=== PATIENT | female | born 1970 | race Caucasian/White ===

== ENCOUNTER 2017-05-23 16:48 | Emergency (ER) | payer OTHER ==
[~2017-05-23] VITALS: Ht 152.4 cm; Wt 88.0 kg
[2017-05-23] MEDS ORDERED: DOXYCYCLINE 10100 M1 PO (17:08)
[2017-05-23] MEDS ORDERED: DEPO-PROVE150 MG/11 IM (17:08)
[2017-05-23] MEDS ORDERED: PREDNISONE 10 M10 MG PO (17:08)
[2017-05-23 17:54] LABS: ABSOLUTE LYMPHOCYTES 1.2 thou/uL (0.8-5.3); ABSOLUTE MONOCYTES 0.4 thou/uL (0.0-1.2); ABSOLUTE NEUTROPHILS 8.4 thou/uL (1.6-8.1); BASOPHILS 0.3 %; HEMATOCRIT 42.6 % (37.0-47.0); HEMOGLOBIN 13.8 gm/dL (12.0-15.0); LYMPHOCYTES 11.8 %; MCH 28.6 pg (26.0-34.0); MCHC 32.5 g/dL (28.0-37.0); MCV 88.1 fL (80.0-100.0); MONOCYTES 3.9 %; MPV 8.9 fl. (7.2-11.1); NUCLEATED RBCS 0 /100WBC; PLATELET COUNT* 242 thou/uL (150-400); RBC 4.83 mil/uL (4.20-5.00); RDW-CV 15.2 % (10.5-14.5); WBC 9.9 thou/uL (4.0-11.0)
[2017-05-23] MEDS ORDERED: VERAPAMIL ER180 M1 PO (17:56)
[2017-05-23 17:58] LABS: ANION GAP 12 mmol/L (7-16); BUN 15 mg/dL (7-18); CALCIUM 8.9 mg/dL (8.5-10.1); CHLORIDE 109 mmol/L (98-107); CO2 20 mmol/L (21-32); GLUCOSE 171 mg/dL (70-99); POTASSIUM 3.6 mmol/L (3.5-5.1); SODIUM 141 mmol/L (136-145)
[2017-05-23 18:05] LABS: ALBUMIN 3.5 g/dL (3.4-5.0); ALKALINE PHOSPHATASE 105 U/L (46-116); SGOT 32 U/L (15-37); SGPT 56 U/L (30-65); TOTAL BILIRUBIN 0.3 mg/dL (<0.1-1.0); TOTAL PROTEIN 6.6 g/dL (6.4-8.2); TROPONIN-I LEVEL <0.06 ng/mL (<0.06)
[2017-05-23 18:41] VITALS: BP 142/90
--- NOTE | 2017-05-24 11:43 | EKG ---
[place] [address] ELECTROCARDIOGRAM REPORT Name: ABIDA PLASCENCIA Room: [facility]#: [id number] Admission: 05/23/17 Attend Phys: Discharge: 05/23/17 Date of : 68 Report #: [id number] THIS REPORT FOR: //name// [facility] ED Test Date: 2017-05-23 Test Time: 16:53:52 Pat Name: ABIDA PLASCENCIA Department: Room: Gender: F Syrup Blender: Markell MUNOZ : 1970 Requested By: Tish Sousa Order Number: [id number] MD: Carlyle De Measurements Intervals [place] Rate: 247 P: 0 ID: QRS: 36 QRSD: 59 T: -82 QT: 198 QTc: 402 Interpretive Statements Supraventricular tachycardia Repolarization abnormality, prob rate related No previous ECG available for comparison Electronically Signed On 05-24-2017 11:43:34 APPOINTMENT CLERK by Carlyle De [email or web address] <ELECTRONICALLY SIGNED> By: Carlyle De MD, [facility] 05/24/17 1143 1653 1653 Carlyle De MD, FACC /EPI
--- NOTE | 2017-05-24 11:44 | EKG ---
[place] [address] ELECTROCARDIOGRAM REPORT Name: ABIDA PLASCENCIA Room: [facility]#: [id number] Admission: 05/23/17 Attend Phys: Discharge: 05/23/17 Date of : 68 Report #: [id number] THIS REPORT FOR: //name// [facility] ED Test Date: 2017-05-23 Test Time: 17:01:29 Pat Name: ABIDA PLASCENCIA Department: Room: Gender: F Education Faculty Member: Markell MUNOZ : 1970 Requested By: Tish Sousa Order Number: [id number] MD: Carlyle De Measurements Intervals [place] Rate: 124 P: 48 ID: 116 QRS: 30 QRSD: 84 T: 17 QT: 308 QTc: 443 Interpretive Statements Sinus tachycardia Probable left atrial enlargement Artifact in lead(s) I,II,III,aVR,aVL,aVF Electronically Signed On 05-24-2017 11:43:56 ASE MASTER MECHANIC by Carlyle De [email or web address] <ELECTRONICALLY SIGNED> By: Carlyle De MD, [facility] 05/24/17 1143 00 00 Carlyle De MD, FACC /EPI
--- NOTE | 2017-05-29 08:34 | CON ---
[address] [address] CONSULTATION Name: ABIDA PLASCENCIA Room: [facility]#: [id number] Admission: 05/23/17 Attend Phys: Discharge: 05/23/17 Date of : 68 Report #: [id number] THIS REPORT FOR: //name// CC: Naif Sousa DATE OF SERVICE: 05/23/2017 INDICATION: Supraventricular tachycardia. HISTORY OF PRESENT ILLNESS: The patient is a very pleasant 47-year-old white female who reports that in the past she has had palpitations where her heart would race, but would usual resolve spontaneously. Today, her heart began racing and did not resolve. She presented to outside physician's office and was noted to be tachycardic and was referred to the Emergency Room. The patient refused EMS transport and arrived by private vehicle to [facility]. She reports some shortness of breath and palpitations with this. Initial EKG shows supraventricular tachycardia with heart rate of 247 beats per minute. The patient was chemically cardioverted to normal sinus rhythm with 2 rounds of Adenocard. Post-cardioversion, EKG shows sinus rhythm without significant ST or T-wave abnormality. There are no pathologic Q-waves. At the time of my interview, the patient was still somewhat shaken up, but feeling much better. She was less short of breath. She was not having chest pain. She is without other cardiac complaint at this time. With the exception of intermittent palpitations likely due to supraventricular tachycardia, she has no other cardiac issues. PAST MEDICAL HISTORY: 1. Paroxysmal supraventricular tachycardia. 2. Colitis. 3. Breast reduction. 4. . 5. Broken right ring finger. HOME MEDICATIONS: Doxycycline 100 mg q. 12h., Depo Provera q. 3 months, prednisone 10 mg daily. ALLERGIES: AMOXICILLIN, CODEINE AND TECALIN. FAMILY HISTORY: Noncontributory. SOCIAL HISTORY: She drinks alcohol occasionally. She does not smoke. PHYSICAL EXAMINATION: VITAL SIGNS: Stable. Blood pressure at the time of my interview was 112/78 [facility] [address] [place] [address] CONSULTATION Name: ABIDA PLASCENCIA Room: [facility]#: [id number] Admission: 05/23/17 Attend Phys: Discharge: 05/23/17 Date of : 68 Report #: [id number] with a pulse rate of 88. GENERAL: This is a pleasant young lady who is in no distress. Mood and affect appropriate. HEENT: Extraocular muscles intact. Mucous membranes are moist. NECK: Shows no jugular venous distention. There are no carotid bruits. CHEST: Reveals clear lung bar without wheezes, rales or rhonchi. CARDIOVASCULAR: Reveals a regular rhythm without gallop, murmur or rub. ABDOMEN: Reveals normal bowel sounds. The abdomen is soft, nontender. EXTREMITIES: Shows no edema. Peripheral pulses 2+ and palpable. LABORATORY DATA: Initial 12-lead EKG shows supraventricular tachycardia, rate 247 beats per minute. Follow up EKG immediately post-cardioversion showed sinus tachycardia with a rate of 124 without pathologic Q-waves or significant ST or T-wave abnormalities. IMPRESSION AND RECOMMENDATIONS: Paroxysmal supraventricular tachycardia. The patient was converted with Adenocard. She was given 20 mg of IV labetalol in the Emergency Room. At this point in time, I would start verapamil SR 180 mg daily. I do believe she would be a candidate for ablation therapy. We will see her in followup in the Cardiology office and make further recommendations at that time. <ELECTRONICALLY SIGNED> By: James Frey MD, FACC 05/29/17 0834 1754 [id number] Frey MD, FACC /nt
[2017-06-09] MEDS ORDERED: FLECAINIDE ACET50 M1 PO (07:56)
[2017-06-09] MEDS ORDERED: TOPROL XL25 MG PO (07:59)
[2017-09-11] MEDS ORDERED: ZANTAC 150MG T150 MG PO (07:24)
[2017-09-11] MEDS ORDERED: CLARITIN10 MG PO (07:24)
== END 2017-05-23 18:42 | disposition home or self-care (01) ==
LOC: M.ERS 16:48
PROVIDERS: Personal Emergency Response Attendant
DX: I47.1 Supraventricular tachycardia (principal); Z98.890 Other specified postprocedural states; Z88.1 Allergy status to other antibiotic agents; Z88.5 Allergy status to narcotic agent; Z88.8 Allergy status to other drugs, medicaments and biological substances

== ENCOUNTER → 2017-05-31 | Outpatient (CLI) | payer OTHER ==
[~2017-05-31] MED LIST: CLARITIN10 MG PO; DEPO-PROVE150 MG/11 IM; DOXYCYCLINE 10100 M1 PO; FLECAINIDE ACET50 M1 PO; PREDNISONE 10 M10 MG PO; TOPROL XL25 MG PO; VERAPAMIL ER180 M1 PO; ZANTAC 150MG T150 MG PO
--- NOTE | 2017-05-31 14:16 | 2DMMODE ---
[place] [address] 2 D/M-MODE ECHOCARDIOGRAM Name: ABIDA PLASCENCIA Room: [facility]#: [id number] Admission: 05/31/17 Attend Phys: James Frey, Discharge: Date of : 68 Date of Service: 05/31/17 1416 Report #: [id number] THIS REPORT FOR: //name// APPROVED REPORT Study performed: 05/31/2017 08:08:35 EXAM: Comprehensive 2D, Doppler, and color-flow Echocardiogram Patient Location: Out-Patient Status: routine BSA: 1.81 HR: 87 bpm BP: 162/100 mmHg Other Information Study Quality: Good Indications SVT 2D Dimensions IVSd: 10.06 (7-11mm) LVOT Diam: 20.25 (18-24mm) LVDd: 38.34 mm PWd: 10.02 (7-11mm) Ascending Ao: 26.18 (22-36mm) LVDs: 30.44 (25-40mm) Aortic Root: 20.92 mm Volumes Left Atrial Volume (Systole) LA ESV Index: 14.00 mL/m2 Aortic Valve AoV Peak Louis.: 1.25 m/s AO Peak Gr.: 6.22 mmHg LVOT Max P.99 mmHg AO Mean Gr.: 3.60 mmHg LVOT Mean P.56 mmHg LVOT Max V: 0.86 m/s AO V2 VTI: 22.64 cm LVOT Mean V: 0.58 m/s SOPHIA (VTI): 2.22 cm2 LVOT V1 VTI: 15.63 cm Mitral Valve E/A Ratio: 0.94 MV Decel. Time: 219.63 ms MV E Max Louis.: 0.88 m/s MV PHT: 63.69 [place] [address] 2 D/M-MODE ECHOCARDIOGRAM Name: ABIDA PLASCENCIA Herb Room: [facility]#: [id number] Admission: 05/31/17 Attend Phys: James Frey, Discharge: Date of : 68 Date of Service: 05/31/17 1416 Report #: [id number] MVA (PHT): 3.45 cm2 TDI E/Lateral E': 7.33 E/Medial E': 9.78 Medial E' Louis.: 0.09 m/s Lateral E' Louis.: 0.12 m/s Pulmonary Valve PV Peak Louis.: 0.91 m/s PV Peak Gr.: 3.32 mmHg Left Ventricle The left ventricle is normal size. There is normal LV segmental wall motion. There is normal left ventricular wall thickness. Left ventricular systolic function is normal. The left ventricular ejection fraction is within the normal range. LVEF is 55-60%. Grade I - abnormal relaxation pattern. Right Ventricle The right ventricle is normal size. The right ventricular systolic function is normal. Atria The left atrium size is normal. The right atrium size is normal. Aortic Valve The aortic valve is normal in structure. No aortic regurgitation is present. There is no aortic valvular stenosis. Mitral Valve The mitral valve is normal in structure. Trace mitral regurgitation. No evidence of mitral valve stenosis. Tricuspid Valve The tricuspid valve is normal in structure. Trace tricuspid regurgitation. Pulmonic Valve The pulmonary valve is normal in structure. There is no pulmonic valvular regurgitation. Great Vessels The aortic root is normal in size. IVC is normal in size and collapses with >50% [place] [address] 2 D/M-MODE ECHOCARDIOGRAM Name: ABIDA PLASCENCIA [id number] Admission: 05/31/17 Attend Phys: James Frey, Discharge: Date of : 68 Date of Service: 05/31/17 1416 Report #: [id number] There is no pericardial effusion. <Conclusion> Left ventricular systolic function is normal. The left ventricular ejection fraction is within the normal range. <ELECTRONICALLY SIGNED> By: Carlyle De MD, [facility] 01/1415 141 15 Carlyle De MD, FACC /INF
== END ==
LOC: M.CRD 07:35
DX: I47.1 Supraventricular tachycardia (principal); I08.1 Rheumatic disorders of both mitral and tricuspid valves